=== PATIENT | male | born 1960 | race Caucasian/White ===

== ENCOUNTER 2019-07-13 08:00 | Outpatient (CLI) | payer MEDICARE, MEDICAID ==
[~2019-07-13] VITALS: Ht 165.1 cm; Wt 67.4 kg
[2019-07-13 06:16] VITALS: BP 108/62
[2019-07-13 06:49] LABS: BASOPHILS # (AUTO) 0.04 x10^3/uL (0-0.1); BASOPHILS % (AUTO) 1 % (0-1); EOSINOPHILS # (AUTO) 0.19 x10^3/uL (0-0.4); EOSINOPHILS % (AUTO) 2 % (1-7); LYMPHOCYTES % (AUTO) 25 % (22-44); MD NO; MEAN CORPUSCULAR HEMOGLOBIN 29.1 pg (27.5-34.5); MEAN CORPUSCULAR VOLUME 85.3 fL (81-97); MONOCYTES # (AUTO) 0.63 x10^3/uL (0.2-0.8); MONOCYTES % (AUTO) 7 % (2-9); NEUTROPHILS # (AUTO) 5.51 x10^3/uL (1.8-6.8); NEUTROPHILS % (AUTO) 65 % (42-75); PLATELET COUNT 362 x10^3/uL (130-400); RED BLOOD COUNT 4.09 x10^6/uL (4.38-5.82); RED CELL DISTRIBUTION WIDTH 13.6 % (9.4-14.8)
[2019-07-13 07:01] LABS: ALANINE AMINOTRANSFERASE 19 U/L (12-78); ALBUMIN 2.9 g/dL (3.4-5.0); ANION GAP 8 mmol/L (5-15); CALCIUM 9.3 mg/dL (8.5-10.1); CHLORIDE 91 mmol/L (98-107); CREATININE 0.92 mg/dL (0.7-1.3)
[2019-07-13 07:03] LABS: ALKALINE PHOSPHATASE 102 U/L (45-117); BILIRUBIN,TOTAL 0.3 mg/dL (0.2-1.0); TOTAL PROTEIN 6.8 g/dL (6.4-8.2)
[~2019-07-13 08:00] MED LIST: BUPIVACAINE/PF-EPI 0.5% 1:200K ONE; CHLORHEXIDINE 15 ML UDC MM STA; CLON0.1T22 PO; CLOP75TA52 PO; DILT180C76 PO; DULO30CA2 PO; FENO160T PO; FENTANYL PF 100 MCG/2ML ONE; FLUT9.9S NS; HEPARIN 1,000 UNITS/ML, 10ML ONE; HYDR-36 PO; INSU100I13 SC; LACTATED RINGERS 1,000 ML IV SCH; LISI1TAB20 PO; METF500T17 PO; MIDAZOLAM 1 MG/ML, 2ML ONE; MIRT30TA4 PO; MONT10TA6 PO; NPH,100V5 SC; OMEG-14 PO; OMEP-110 PO; POTASSIUM CHLORIDE 40 MEQ in SODIUM CHLORIDE 0.9% 500 ML IV STA; PREG200C PO; THROMBIN 20,000 UNIT VIAL TP ONE
[2019-07-16] MEDS ORDERED: HEPARIN 1,000 UNITS/ML, 10ML ONE (12:23)
[2019-07-16] MEDS ORDERED: BUPIVACAINE/PF-EPI 0.5% 1:200K ONE (12:23)
[2019-07-16] MEDS ORDERED: PAPAVERINE 30 MG/ML, 2ML ONE (12:23)
[2019-07-16] MEDS ORDERED: PROTAMINE SULFATE 10 MG/ML, 5ML ONE (12:24)
== END 2019-07-13 23:59 | disposition home or self-care (01) ==
LOC: OUT 08:00
PROVIDERS: ATTEND Surgery
DX: Z01.818 Encounter for other preprocedural examination (principal); R94.31 Abnormal electrocardiogram [ECG] [EKG]; I49.1 Atrial premature depolarization; J98.11 Atelectasis; J84.10 Pulmonary fibrosis, unspecified; I70.212 Atherosclerosis of native arteries of extremities with intermittent claudication, left leg
CPT/HCPCS: 36415; 71045; 80053; 82962; 85025; 86850; 86900; 93005; J1644; J2250; J3010; J7120; J2720; J2440

== ENCOUNTER 2019-07-16 12:21 | Emergency (ER) | payer MEDICARE, MEDICAID ==
[~2019-07-16] VITALS: Ht 165.1 cm; Wt 68.0 kg
[~2019-07-16 12:21] MED LIST changes: -BUPIVACAINE/PF-EPI 0.5% 1:200K ONE; -CHLORHEXIDINE 15 ML UDC MM STA; -FENTANYL PF 100 MCG/2ML ONE; -HEPARIN 1,000 UNITS/ML, 10ML ONE; +HYDR-3246 PO; -HYDR-36 PO; -LACTATED RINGERS 1,000 ML IV SCH; -MIDAZOLAM 1 MG/ML, 2ML ONE; -POTASSIUM CHLORIDE 40 MEQ in SODIUM CHLORIDE 0.9% 500 ML IV STA; -THROMBIN 20,000 UNIT VIAL TP ONE
[2019-07-16 13:00] LABS: ANION GAP 9 mmol/L (5-15); CALCIUM 10.6 mg/dL (8.5-10.1); CHLORIDE 97 mmol/L (98-107); CREATININE 0.89 mg/dL (0.7-1.3)
[2019-07-16 13:05] LABS: MEAN CORPUSCULAR HEMOGLOBIN 28.7 pg (27.5-34.5); MEAN CORPUSCULAR HGB CONC 33.8 g/dL (33.2-36.2); MEAN PLATELET VOLUME 8.8 fL (7.4-10.4); PLATELET COUNT 429 x10^3/uL (130-400); RED BLOOD COUNT 5.12 x10^6/uL (4.38-5.82); RED CELL DISTRIBUTION WIDTH 14.1 % (9.4-14.8)
--- NOTE | 2019-07-16 13:08 | NUR ---
[employer]: PT TO ROOM FROM LOBBY IN
[2019-07-16 13:27] LABS: BASOPHILS % (AUTO) 0 % (0-1); EOSINOPHILS # (AUTO) 0.02 x10^3/uL (0-0.4); EOSINOPHILS % (AUTO) 0 % (1-7); LYMPHOCYTES % (AUTO) 12 % (22-44); MD SCAN; MONOCYTES # (AUTO) 0.32 x10^3/uL (0.2-0.8); MONOCYTES % (AUTO) 4 % (2-9); NEUTROPHILS # (AUTO) 7.27 x10^3/uL (1.8-6.8); NEUTROPHILS % (AUTO) 84 % (42-75)
[2019-07-16] MEDS ORDERED: SODIUM CHLORIDE 0.9% 1,000ML IVBOLUS ONE (13:30)
[2019-07-16] MEDS ORDERED: SODIUM CHLORIDE FLUSH 10ML SYR IVF ONE (13:30)
--- NOTE | 2019-07-16 13:51 | NUR ---
PT CAME IN CO OF RIGHT TOE NECROSIS WAS GOING TO GET SURGERY TODAY WHICH IS NO LONGER GOING TO HAPPEN BECAUSE PATIENT IS ALSO CO OF FEVER, BODY ACHES, AND A COUGH. DROPLET PRECAUTIONS IN PLACE
[2019-07-16] MEDS ORDERED: OXYC10TA6 PO (15:21)
[2019-07-16 15:30] VITALS: BP 111/68
--- NOTE | 2019-07-16 15:38 | NUR ---
PT RESTING IN [facility]. VSS. NOTIFIED THAT PT REQUESTS PAIN MEDS
[2019-07-16 15:55] LABS: MICROSCOPIC INDICATED
[2019-07-16] MEDS ORDERED: INSULIN LISPRO 100 UNITS/ML, PEN SQ-INSULIN SCH ×2 (16:00→18:00)
[2019-07-16] MEDS ORDERED: PREGABALIN 200 MG CAPSULE PO SCH ×2 (16:00→18:00)
[2019-07-16] MEDS ORDERED: OXYcodone 5 MG/5 ML ORAL.SOL UDC PO PRN (16:00)
--- NOTE | 2019-07-16 16:27 | NUR ---
PT REMOVED PULSE OX AND BP CUFF FOR THE SECOND TIME
--- NOTE | 2019-07-16 17:27 | NUR ---
PT REMOVED IV HIMSELF AND STATED THAT HE WANTS TO GO HOME. PT HAS BEEN EDUCATED THAT IF HE LEAVES HE WILL LOSE HIS LEG. HE STILL WANTS TO LEAVE. MD TO TALK TO HIM TO MAKE SURE HE UNDERSTANDS THE GRAVITY OF THE SITUATION
--- NOTE | 2019-07-16 17:33 | NUR ---
AFTER TALKING WITH DR LAIRD. PT STILL WANTS TO LEAVE. PT UNDERSTANDS THERE IS A VERY GOOD CHANCE THAT HE WILL LOSE HIS LEG IF HE LEAVES AND THAT HE WILL UNLIKELY BE ABLE TO SCHUEDULE HIS SURGERY FOR 2 WEEKS
[2019-07-16] MEDS ORDERED: MIRTAZAPINE 30 MG TABLET PO SCH ×2 (21:00)
[2019-07-17] MEDS ORDERED: MONTELUKAST 10 MG TABLET PO SCH ×2 (09:00)
[2019-07-17] MEDS ORDERED: DULOXETINE 30 MG CAPSULE.DR PO SCH ×2 (09:00)
[2019-07-17] MEDS ORDERED: OMEPRAZOLE 20 MG CAPSULE.DR PO SCH ×2 (09:00)
[2019-07-17] MEDS ORDERED: CLOPIDOGREL 75 MG TABLET PO SCH ×2 (09:00)
[2019-07-17] MEDS ORDERED: TEMPLATE NON-FORMULARY MED. (Fluticasone Propionate (Flonase Allergy Relief) 1 SPRAY) NS SCH ×2 (09:00)
[2019-07-17] MEDS ORDERED: TEMPLATE NON-FORMULARY MED. (Fenofibrate** 160 MG) PO SCH ×2 (09:00)
[2019-07-17] MEDS ORDERED: DILTIAZEM HCL 180 MG PO SCH ×2 (09:00)
[2019-08-21] MEDS ORDERED: HYDR-3622 PO (15:05)
[2019-08-21] MEDS ORDERED: NPH,100V5 SQ ×2 (15:05)
== END 2019-07-16 17:47 | disposition left against medical advice (07) ==
LOC: ED 13:41 → EDIP 14:20 → UNDOADMIN 14:20 → ED 17:47
DX: B34.9 Viral infection, unspecified (principal); Z20.828 Contact with and (suspected) exposure to other viral communicable diseases; E11.9 Type 2 diabetes mellitus without complications; F17.200 Nicotine dependence, unspecified, uncomplicated; R00.0 Tachycardia, unspecified
CPT/HCPCS: 36415; 71045; 80048; 81001; 83605; 84145; 85025; 87040; 93005; 99285; J7030; 99283

== ENCOUNTER 2019-07-23 07:03 | Inpatient (IN) | payer MEDICARE, MEDICAID ==
[~2019-07-23] VITALS: Ht 165.1 cm; Wt 70.7 kg
[~2019-07-23 07:03] MED LIST changes: -HYDR-3246 PO; +HYDR-36 PO; +OXYC10TA6 PO
[2019-07-23] MEDS ORDERED: LACTATED RINGERS 1,000 ML IV SCH ×2 (07:24→17:30)
[2019-07-23] MEDS ORDERED: CHLORHEXIDINE 15 ML UDC MM ONE (07:30)
[2019-07-23 07:58] VITALS: BP 129/74
[2019-07-23] MEDS ORDERED: PLEASE ENTER ALLERGIES MC SCH (08:00)
[2019-07-23] MEDS ORDERED: INSULIN REGULAR 100 UNITS/ML, 3ML VIAL SQ-INSULIN STA (08:10)
[2019-07-23] MEDS ORDERED: INSULIN SINGLE DOSE, ER ONE ×2 (08:18→10:07)
[2019-07-23] MEDS ORDERED: ACETAMINOPHEN 500 MG TABLET ONE (08:21)
[2019-07-23] MEDS ORDERED: GABAPENTIN 300 MG CAPSULE ONE (08:21)
[2019-07-23] MEDS ORDERED: GABAPENTIN 300 MG CAPSULE PO ONE (08:30)
[2019-07-23] MEDS ORDERED: ACETAMINOPHEN 500 MG TABLET PO ONE (08:30)
[2019-07-23] MEDS ORDERED: HEPARIN 1,000 UNITS/ML, 10ML ONE ×2 (09:53→12:09)
[2019-07-23] MEDS ORDERED: BUPIVACAINE/PF-EPI 0.5% 1:200K ONE (09:53)
[2019-07-23] MEDS ORDERED: PROMETHAZINE 25 MG/ML, 1ML IV PRN (10:00)
[2019-07-23] MEDS ORDERED: hydrALAzine 20 MG/ML, 1ML IV PRN (10:00)
[2019-07-23] MEDS ORDERED: MEPERIDINE/PF 25MG/ML,1ML IVPush PRN (10:00)
[2019-07-23] MEDS ORDERED: LABETALOL 5MG/ML, 20ML IV PRN (10:00)
[2019-07-23] MEDS ORDERED: HALOPERIDOL 5 MG/ML IV PRN (10:00)
[2019-07-23] MEDS ORDERED: OXYcodone 5 MG/5 ML ORAL.SOL UDC PO PRN (10:00)
[2019-07-23] MEDS ORDERED: FENTANYL PF 250 MCG/5ML ONE (10:10)
[2019-07-23] MEDS ORDERED: PHENYLEPHRINE 10 MG/ML ONE (11:15)
[2019-07-23] MEDS ORDERED: PROTAMINE SULFATE 10 MG/ML, 5ML ONE (13:14)
[2019-07-23] MEDS ORDERED: SUCCINYLCHOLINE 20 MG/ML, 10ML ONE (13:42)
[2019-07-23] MEDS ORDERED: DEXAMETHASONE 4 MG/ML, 1ML ONE (13:42)
[2019-07-23] MEDS ORDERED: ONDANSETRON 2MG/ML, 2ML ONE (13:42)
[2019-07-23] MEDS ORDERED: ROCURONIUM 10MG/ML,5ML ONE (13:42)
[2019-07-23] MEDS ORDERED: NEOSTIGMINE 1 MG/ML, 10ML ONE (13:42)
[2019-07-23] MEDS ORDERED: CEFAZOLIN 1,000 MG ONE (13:42)
[2019-07-23] MEDS ORDERED: PROPOFOL 10 MG/ML, 20ML ONE (13:42)
[2019-07-23] MEDS ORDERED: GLYCOPYRROLATE 0.2MG/1ML, 5ML ONE (13:42)
[2019-07-23] MEDS ORDERED: ESMOLOL 100 MG/10 ML ONE (13:54)
[2019-07-23] MEDS ORDERED: EPHEDRINE 50 MG/ML, 1ML ONE (14:42)
[2019-07-23] MEDS ORDERED: LACTATED RINGERS 500 ML IVBOLUS ONE ×2 (15:00→15:30)
[2019-07-23] MEDS ORDERED: PHENYLEPHRINE 50 MG in SODIUM CHLORIDE 0.9% 245 ML IV PRN (15:00)
[2019-07-23] MEDS ORDERED: EPHEDRINE 50 MG/ML, 1ML IVPush ONE ×2 (15:00)
[2019-07-23] MEDS ORDERED: FENTANYL PF 100 MCG/2ML ONE (15:12)
[2019-07-23] MEDS: FENTANYL PF 100 MCG/2ML IV PRN ×3 (15:15→15:58)
[2019-07-23] MEDS ORDERED: OXYcodone 5 MG/5 ML ORAL.SOL UDC ONE (16:03)
[2019-07-23] MEDS ORDERED: HYDROmorphone 1 MG/ML, 1ML INJ ONE (16:03)
[2019-07-23] MEDS: HYDROmorphone 2 MG/ML, 1ML IVPush PRN ×2 (16:10→16:19)
[2019-07-23] MEDS ORDERED: PREGABALIN 100 MG CAPSULE ONE ×2 (17:41→17:55)
[2019-07-23] MEDS ORDERED: MIRTAZAPINE 30 MG TABLET ONE ×2 (17:41→17:55)
[2019-07-23] MEDS: PREGABALIN 200 MG CAPSULE PO SCH ×2 (18:00→18:31)
[2019-07-23] MEDS: MIRTAZAPINE 30 MG TABLET PO SCH (18:00)
[2019-07-23] MEDS: MONTELUKAST 10 MG TABLET PO SCH (19:49)
[2019-07-23] MEDS: INSULIN REGULAR, HUMAN 100 UNITS/ML, 3ML MEDIUM DOSE SS SQ-INSULIN SCH (19:49)
[2019-07-23 20:00] VITALS: BP 125/64
[2019-07-23] MEDS ORDERED: PREGABALIN 200 MG CAPSULE PO SCH (21:00)
[2019-07-23] MEDS ORDERED: MIRTAZAPINE 30 MG TABLET PO SCH (21:00)
[2019-07-23] MEDS: CEFAZOLIN PMX 1GM/50ML 50 ML IV SCH (21:46)
[2019-07-23] MEDS: LACTATED RINGERS 1,000 ML IV SCH (21:46)
[2019-07-23 23:47] VITALS: BP 133/72
[2019-07-24] MEDS: INSULIN REGULAR, HUMAN 100 UNITS/ML, 3ML MEDIUM DOSE SS SQ-INSULIN SCH ×4 (00:22→17:53)
[2019-07-24] MEDS: OXYcodone IR 5MG TABLET PO PRN ×4 (02:12→20:07)
[2019-07-24 04:23] VITALS: BP 150/69
[2019-07-24] MEDS: morphine SULFATE 10 MG/ML, 1ML IV PRN ×2 (05:37→08:57)
[2019-07-24] MEDS: PANTOPRAZOLE 40MG TABLET PO SCH (05:53)
[2019-07-24] MEDS: HEPARIN 5,000 UNITS/ML, 1ML SQ SCH ×3 (05:53→22:30)
[2019-07-24] MEDS: CEFAZOLIN PMX 1GM/50ML 50 ML IV SCH ×3 (05:53→22:30)
[2019-07-24] MEDS: LACTATED RINGERS 1,000 ML IV SCH ×2 (05:53→16:42)
[2019-07-24 07:36] VITALS: BP 141/64
[2019-07-24] MEDS: FENOFIBRATE 145 MG TABLET PO SCH (08:17)
[2019-07-24] MEDS: DULOXETINE 30 MG CAPSULE.DR PO SCH (08:17)
[2019-07-24] MEDS: CLOPIDOGREL 75 MG TABLET PO SCH (08:17)
[2019-07-24] MEDS: PREGABALIN 200 MG CAPSULE PO SCH ×3 (08:18→19:51)
[2019-07-24] MEDS: OMEGA-3/FISH OIL CAPSULE PO SCH (08:18)
[2019-07-24] MEDS: HYDROCHLOROTHIAZIDE 25 MG TABLET PO SCH (08:18)
[2019-07-24] MEDS: LISINOPRIL 20 MG TABLET PO SCH (08:18)
[2019-07-24] MEDS: DILTIAZEM CD 180 MG CAP.ER.24H PO SCH (08:18)
[2019-07-24] MEDS: FLUTICASONE NASAL SPRAY 16GM NAS SCH (08:54)
[2019-07-24 14:35] VITALS: BP 122/57
[2019-07-24] MEDS ORDERED: ONDANSETRON 2MG/ML, 2ML IVPush PRN (17:00)
[2019-07-24] MEDS: POTASSIUM CHLORIDE 20 MEQ TAB.ER.PRT PO SCH (17:52)
[2019-07-24] MEDS: MIRTAZAPINE 30 MG TABLET PO SCH (19:51)
[2019-07-24] MEDS: MONTELUKAST 10 MG TABLET PO SCH (19:51)
[2019-07-24 19:52] VITALS: BP 124/65
[2019-07-24] MEDS ORDERED: MORPHINE SULFATE 4 MG/ML, 1ML ONE (19:59)
[2019-07-24 21:10] LABS: MICROSCOPIC AUTO
[2019-07-24 21:13] LABS: CULTURE INDICATED? NO
[2019-07-25] MEDS: INSULIN REGULAR, HUMAN 100 UNITS/ML, 3ML MEDIUM DOSE SS SQ-INSULIN SCH ×6 (00:09→23:56)
[2019-07-25] MEDS: LACTATED RINGERS 1,000 ML IV SCH ×2 (03:10→13:47)
[2019-07-25 03:12] VITALS: BP 114/63
[2019-07-25 05:12] LABS: ANION GAP 7 mmol/L (5-15); CALCIUM 8.8 mg/dL (8.5-10.1); CHLORIDE 97 mmol/L (98-107)
[2019-07-25] MEDS: PANTOPRAZOLE 40MG TABLET PO SCH (05:35)
[2019-07-25] MEDS: HEPARIN 5,000 UNITS/ML, 1ML SQ SCH ×3 (05:36→21:57)
[2019-07-25] MEDS: CEFAZOLIN PMX 1GM/50ML 50 ML IV SCH ×3 (06:06→21:57)
[2019-07-25 06:47] VITALS: BP 120/77
[2019-07-25] MEDS: OXYcodone IR 5MG TABLET PO PRN ×2 (08:13→16:47)
[2019-07-25] MEDS: POTASSIUM CHLORIDE 20 MEQ TAB.ER.PRT PO SCH ×2 (08:13→16:47)
[2019-07-25] MEDS: PREGABALIN 200 MG CAPSULE PO SCH ×3 (08:13→20:31)
[2019-07-25] MEDS: HYDROCHLOROTHIAZIDE 25 MG TABLET PO SCH (08:13)
[2019-07-25] MEDS: FLUTICASONE NASAL SPRAY 16GM NAS SCH (08:13)
[2019-07-25] MEDS: LISINOPRIL 20 MG TABLET PO SCH (08:14)
[2019-07-25] MEDS: FENOFIBRATE 145 MG TABLET PO SCH ×2 (08:14→11:36)
[2019-07-25] MEDS: CLOPIDOGREL 75 MG TABLET PO SCH ×2 (08:14→11:37)
[2019-07-25] MEDS: OMEGA-3/FISH OIL CAPSULE PO SCH ×2 (08:14→11:36)
[2019-07-25] MEDS: DULOXETINE 30 MG CAPSULE.DR PO SCH ×2 (08:14→11:36)
[2019-07-25] MEDS: DILTIAZEM CD 180 MG CAP.ER.24H PO SCH (08:14)
[2019-07-25 12:40] VITALS: BP 94/45
[2019-07-25 12:49] VITALS: BP 101/65
[2019-07-25 20:04] VITALS: BP 106/50
[2019-07-25] MEDS: MONTELUKAST 10 MG TABLET PO SCH (20:31)
[2019-07-25] MEDS: MIRTAZAPINE 30 MG TABLET PO SCH (20:31)
[2019-07-26] MEDS: LACTATED RINGERS 1,000 ML IV SCH ×3 (01:23→21:30)
[2019-07-26 01:24] VITALS: BP 111/64
[2019-07-26] MEDS: PANTOPRAZOLE 40MG TABLET PO SCH (05:42)
[2019-07-26] MEDS: HEPARIN 5,000 UNITS/ML, 1ML SQ SCH ×3 (05:45→22:00)
[2019-07-26] MEDS: CEFAZOLIN PMX 1GM/50ML 50 ML IV SCH ×2 (05:46→14:12)
[2019-07-26 05:53] LABS: ANION GAP 6 mmol/L (5-15); CALCIUM 9.8 mg/dL (8.5-10.1); CHLORIDE 98 mmol/L (98-107)
[2019-07-26] MEDS: INSULIN REGULAR, HUMAN 100 UNITS/ML, 3ML MEDIUM DOSE SS SQ-INSULIN SCH ×3 (05:53→17:58)
[2019-07-26 05:56] LABS: CREATININE 0.62 mg/dL (0.7-1.3)
[2019-07-26 07:15] VITALS: BP 152/72
[2019-07-26] MEDS: PREGABALIN 200 MG CAPSULE PO SCH ×3 (08:15→22:05)
[2019-07-26] MEDS: POTASSIUM CHLORIDE 20 MEQ TAB.ER.PRT PO SCH ×2 (08:15→17:06)
[2019-07-26] MEDS: OMEGA-3/FISH OIL CAPSULE PO SCH (08:16)
[2019-07-26] MEDS: DULOXETINE 30 MG CAPSULE.DR PO SCH (08:16)
[2019-07-26] MEDS: CLOPIDOGREL 75 MG TABLET PO SCH (08:16)
[2019-07-26] MEDS: LISINOPRIL 20 MG TABLET PO SCH (08:16)
[2019-07-26] MEDS: HYDROCHLOROTHIAZIDE 25 MG TABLET PO SCH (08:16)
[2019-07-26] MEDS: FENOFIBRATE 145 MG TABLET PO SCH (08:16)
[2019-07-26] MEDS: DILTIAZEM CD 180 MG CAP.ER.24H PO SCH (08:16)
[2019-07-26] MEDS: FLUTICASONE NASAL SPRAY 16GM NAS SCH (08:17)
[2019-07-26] MEDS: OXYcodone IR 5MG TABLET PO PRN ×2 (08:24→22:12)
[2019-07-26 13:05] VITALS: BP 115/69
[2019-07-26] MEDS ORDERED: CHLORHEXIDINE 15 ML UDC MM ONE (15:30)
[2019-07-26] MEDS ORDERED: FENTANYL PF 100 MCG/2ML ONE ×2 (16:01→18:19)
[2019-07-26] MEDS ORDERED: BUPIVACAINE/PF 0.5% ONE (16:59)
[2019-07-26] MEDS ORDERED: HYDROmorphone 2 MG/ML, 1ML IVPush PRN (17:00)
[2019-07-26] MEDS ORDERED: LABETALOL 5MG/ML, 20ML IV PRN (17:00)
[2019-07-26] MEDS ORDERED: MEPERIDINE/PF 25MG/ML,1ML IVPush PRN (17:00)
[2019-07-26] MEDS ORDERED: OXYcodone 5 MG/5 ML ORAL.SOL UDC PO PRN (17:00)
[2019-07-26] MEDS ORDERED: hydrALAzine 20 MG/ML, 1ML IV PRN (17:00)
[2019-07-26] MEDS ORDERED: FENTANYL PF 100 MCG/2ML IV PRN (17:00)
[2019-07-26] MEDS ORDERED: HALOPERIDOL 5 MG/ML IV PRN (17:00)
[2019-07-26] MEDS ORDERED: PROMETHAZINE 25 MG/ML, 1ML IV PRN (17:00)
[2019-07-26] MEDS ORDERED: OXYcodone 5 MG/5 ML ORAL.SOL UDC ONE (18:24)
[2019-07-26 18:45] VITALS: BP 146/77
[2019-07-26] MEDS: MIRTAZAPINE 30 MG TABLET PO SCH (22:05)
[2019-07-26] MEDS: MONTELUKAST 10 MG TABLET PO SCH (22:05)
[2019-07-27] MEDS: INSULIN REGULAR, HUMAN 100 UNITS/ML, 3ML MEDIUM DOSE SS SQ-INSULIN SCH ×4 (00:21→16:57)
[2019-07-27 00:47] VITALS: BP 150/77
[2019-07-27 04:08] VITALS: BP 127/67
[2019-07-27 05:33] LABS: ANION GAP 6 mmol/L (5-15); CALCIUM 9.5 mg/dL (8.5-10.1); CHLORIDE 96 mmol/L (98-107)
[2019-07-27 05:36] LABS: CREATININE 0.72 mg/dL (0.7-1.3)
[2019-07-27] MEDS: HEPARIN 5,000 UNITS/ML, 1ML SQ SCH ×3 (06:00→22:25)
[2019-07-27] MEDS: OXYcodone IR 5MG TABLET PO PRN ×3 (06:22→20:47)
[2019-07-27] MEDS: PANTOPRAZOLE 40MG TABLET PO SCH (06:22)
[2019-07-27 07:57] VITALS: BP 132/75
[2019-07-27] MEDS: FENOFIBRATE 145 MG TABLET PO SCH (08:11)
[2019-07-27] MEDS: CLOPIDOGREL 75 MG TABLET PO SCH (08:11)
[2019-07-27] MEDS: PREGABALIN 200 MG CAPSULE PO SCH ×3 (08:11→20:48)
[2019-07-27] MEDS: LISINOPRIL 20 MG TABLET PO SCH (08:11)
[2019-07-27] MEDS: DILTIAZEM CD 180 MG CAP.ER.24H PO SCH (08:12)
[2019-07-27] MEDS: FLUTICASONE NASAL SPRAY 16GM NAS SCH (08:12)
[2019-07-27] MEDS: HYDROCHLOROTHIAZIDE 25 MG TABLET PO SCH (08:12)
[2019-07-27] MEDS: POTASSIUM CHLORIDE 20 MEQ TAB.ER.PRT PO SCH ×2 (08:12→16:55)
[2019-07-27] MEDS: DULOXETINE 30 MG CAPSULE.DR PO SCH (08:12)
[2019-07-27] MEDS: OMEGA-3/FISH OIL CAPSULE PO SCH (08:12)
[2019-07-27 14:03] VITALS: BP 134/73
[2019-07-27] MEDS: LACTATED RINGERS 1,000 ML IV SCH ×2 (14:28→17:30)
[2019-07-27 19:08] VITALS: BP 149/74
[2019-07-27] MEDS: MIRTAZAPINE 30 MG TABLET PO SCH (20:47)
[2019-07-27] MEDS: MONTELUKAST 10 MG TABLET PO SCH (20:48)
[2019-07-28] MEDS: INSULIN REGULAR, HUMAN 100 UNITS/ML, 3ML MEDIUM DOSE SS SQ-INSULIN SCH ×4 (00:03→17:21)
[2019-07-28 01:34] VITALS: BP 115/70
[2019-07-28] MEDS: LACTATED RINGERS 1,000 ML IV SCH ×3 (02:08→23:30)
[2019-07-28] MEDS: HEPARIN 5,000 UNITS/ML, 1ML SQ SCH ×3 (06:05→21:20)
[2019-07-28] MEDS: PANTOPRAZOLE 40MG TABLET PO SCH (06:05)
[2019-07-28 06:48] VITALS: BP 140/73
[2019-07-28 07:00] LABS: ANION GAP 8 mmol/L (5-15); CALCIUM 9.8 mg/dL (8.5-10.1); CHLORIDE 96 mmol/L (98-107); CREATININE 0.66 mg/dL (0.7-1.3)
[2019-07-28] MEDS: FENOFIBRATE 145 MG TABLET PO SCH (08:28)
[2019-07-28] MEDS: PREGABALIN 200 MG CAPSULE PO SCH ×3 (08:28→21:20)
[2019-07-28] MEDS: POTASSIUM CHLORIDE 20 MEQ TAB.ER.PRT PO SCH ×2 (08:28→16:14)
[2019-07-28] MEDS: DULOXETINE 30 MG CAPSULE.DR PO SCH (08:28)
[2019-07-28] MEDS: CLOPIDOGREL 75 MG TABLET PO SCH (08:28)
[2019-07-28] MEDS: LISINOPRIL 20 MG TABLET PO SCH (08:28)
[2019-07-28] MEDS: DILTIAZEM CD 180 MG CAP.ER.24H PO SCH (08:29)
[2019-07-28] MEDS: HYDROCHLOROTHIAZIDE 25 MG TABLET PO SCH (08:29)
[2019-07-28] MEDS: OMEGA-3/FISH OIL CAPSULE PO SCH (08:29)
[2019-07-28] MEDS: FLUTICASONE NASAL SPRAY 16GM NAS SCH (08:29)
[2019-07-28 12:21] VITALS: BP 144/75
[2019-07-28] MEDS: OXYcodone IR 5MG TABLET PO PRN (16:14)
[2019-07-28 19:48] VITALS: BP 122/73
[2019-07-28] MEDS: MIRTAZAPINE 30 MG TABLET PO SCH (21:20)
[2019-07-28] MEDS: MONTELUKAST 10 MG TABLET PO SCH (21:20)
[2019-07-29 02:33] VITALS: BP 125/73
[2019-07-29 05:31] LABS: ANION GAP 6 mmol/L (5-15); CALCIUM 10.1 mg/dL (8.5-10.1); CHLORIDE 98 mmol/L (98-107); CREATININE 0.86 mg/dL (0.7-1.3)
[2019-07-29] MEDS: INSULIN REGULAR, HUMAN 100 UNITS/ML, 3ML MEDIUM DOSE SS SQ-INSULIN SCH ×4 (06:00→18:31)
[2019-07-29] MEDS: PANTOPRAZOLE 40MG TABLET PO SCH (06:20)
[2019-07-29] MEDS: HEPARIN 5,000 UNITS/ML, 1ML SQ SCH ×3 (06:21→21:18)
[2019-07-29 07:10] VITALS: BP 133/79
[2019-07-29] MEDS: PREGABALIN 200 MG CAPSULE PO SCH ×3 (07:43→21:17)
[2019-07-29] MEDS: FENOFIBRATE 145 MG TABLET PO SCH (07:43)
[2019-07-29] MEDS: DILTIAZEM CD 180 MG CAP.ER.24H PO SCH (07:43)
[2019-07-29] MEDS: POTASSIUM CHLORIDE 20 MEQ TAB.ER.PRT PO SCH ×2 (07:43→14:55)
[2019-07-29] MEDS: HYDROCHLOROTHIAZIDE 25 MG TABLET PO SCH (07:43)
[2019-07-29] MEDS: OMEGA-3/FISH OIL CAPSULE PO SCH (07:43)
[2019-07-29] MEDS: CLOPIDOGREL 75 MG TABLET PO SCH (07:43)
[2019-07-29] MEDS: LISINOPRIL 20 MG TABLET PO SCH (07:44)
[2019-07-29] MEDS: DULOXETINE 30 MG CAPSULE.DR PO SCH (07:44)
[2019-07-29] MEDS: FLUTICASONE NASAL SPRAY 16GM NAS SCH (07:44)
[2019-07-29] MEDS: LACTATED RINGERS 1,000 ML IV SCH ×2 (09:30→19:30)
[2019-07-29 13:37] VITALS: BP 132/82
[2019-07-29 18:36] VITALS: BP 118/52
[2019-07-29] MEDS: MIRTAZAPINE 30 MG TABLET PO SCH (21:17)
[2019-07-29] MEDS: MONTELUKAST 10 MG TABLET PO SCH (21:17)
[2019-07-30] MEDS: INSULIN REGULAR, HUMAN 100 UNITS/ML, 3ML MEDIUM DOSE SS SQ-INSULIN SCH ×4 (00:15→20:51)
[2019-07-30 00:32] VITALS: BP 152/78
[2019-07-30] MEDS: LACTATED RINGERS 1,000 ML IV SCH ×2 (05:30→07:33)
[2019-07-30] MEDS: PANTOPRAZOLE 40MG TABLET PO SCH (06:43)
[2019-07-30] MEDS: HEPARIN 5,000 UNITS/ML, 1ML SQ SCH ×3 (06:43→23:18)
[2019-07-30 07:09] VITALS: BP 130/84
[2019-07-30] MEDS: POTASSIUM CHLORIDE 20 MEQ TAB.ER.PRT PO SCH ×2 (08:01→15:57)
[2019-07-30] MEDS: FLUTICASONE NASAL SPRAY 16GM NAS SCH (08:01)
[2019-07-30] MEDS: LISINOPRIL 20 MG TABLET PO SCH (08:01)
[2019-07-30] MEDS: FENOFIBRATE 145 MG TABLET PO SCH (08:01)
[2019-07-30] MEDS: OMEGA-3/FISH OIL CAPSULE PO SCH (08:01)
[2019-07-30] MEDS: CLOPIDOGREL 75 MG TABLET PO SCH (08:02)
[2019-07-30] MEDS: DILTIAZEM CD 180 MG CAP.ER.24H PO SCH (08:02)
[2019-07-30] MEDS: DULOXETINE 30 MG CAPSULE.DR PO SCH (08:02)
[2019-07-30] MEDS: PREGABALIN 200 MG CAPSULE PO SCH ×3 (08:02→20:50)
[2019-07-30] MEDS: HYDROCHLOROTHIAZIDE 25 MG TABLET PO SCH (08:03)
[2019-07-30] MEDS: OXYcodone IR 5MG TABLET PO PRN (10:36)
[2019-07-30 12:47] VITALS: BP 98/76
[2019-07-30 19:20] VITALS: BP 95/57
[2019-07-30] MEDS: MIRTAZAPINE 30 MG TABLET PO SCH (20:50)
[2019-07-30] MEDS: MONTELUKAST 10 MG TABLET PO SCH (20:50)
[2019-07-31 01:02] VITALS: BP 139/61
[2019-07-31] MEDS: LACTATED RINGERS 1,000 ML IV SCH ×3 (01:24→20:58)
[2019-07-31] MEDS: INSULIN REGULAR, HUMAN 100 UNITS/ML, 3ML MEDIUM DOSE SS SQ-INSULIN SCH ×4 (03:12→20:58)
[2019-07-31] MEDS: PANTOPRAZOLE 40MG TABLET PO SCH (06:42)
[2019-07-31] MEDS: HEPARIN 5,000 UNITS/ML, 1ML SQ SCH ×3 (06:42→21:15)
[2019-07-31 07:24] VITALS: BP 132/82
[2019-07-31] MEDS: FLUTICASONE NASAL SPRAY 16GM NAS SCH (08:45)
[2019-07-31] MEDS: POTASSIUM CHLORIDE 20 MEQ TAB.ER.PRT PO SCH ×2 (08:45→16:22)
[2019-07-31] MEDS: DULOXETINE 30 MG CAPSULE.DR PO SCH (08:45)
[2019-07-31] MEDS: FENOFIBRATE 145 MG TABLET PO SCH (08:45)
[2019-07-31] MEDS: PREGABALIN 200 MG CAPSULE PO SCH ×3 (08:45→20:57)
[2019-07-31] MEDS: DILTIAZEM CD 180 MG CAP.ER.24H PO SCH (08:46)
[2019-07-31] MEDS: OMEGA-3/FISH OIL CAPSULE PO SCH (08:46)
[2019-07-31] MEDS: HYDROCHLOROTHIAZIDE 25 MG TABLET PO SCH (08:46)
[2019-07-31] MEDS: CLOPIDOGREL 75 MG TABLET PO SCH (08:47)
[2019-07-31] MEDS: LISINOPRIL 20 MG TABLET PO SCH (08:47)
[2019-07-31] MEDS: OXYcodone IR 5MG TABLET PO PRN ×2 (12:16→21:13)
[2019-07-31 14:01] VITALS: BP 90/56
[2019-07-31 19:29] VITALS: BP 116/70
[2019-07-31] MEDS: MIRTAZAPINE 30 MG TABLET PO SCH (20:56)
[2019-07-31] MEDS: MONTELUKAST 10 MG TABLET PO SCH (20:57)
[2019-08-01] MEDS: INSULIN REGULAR, HUMAN 100 UNITS/ML, 3ML MEDIUM DOSE SS SQ-INSULIN SCH ×3 (03:02→14:30)
[2019-08-01 03:08] VITALS: BP 102/64
[2019-08-01] MEDS: OXYcodone IR 5MG TABLET PO PRN ×3 (05:53→18:27)
[2019-08-01] MEDS: HEPARIN 5,000 UNITS/ML, 1ML SQ SCH ×2 (05:53→14:13)
[2019-08-01] MEDS: PANTOPRAZOLE 40MG TABLET PO SCH (05:53)
[2019-08-01 07:08] VITALS: BP 87/43
[2019-08-01] MEDS: LACTATED RINGERS 1,000 ML IV SCH ×2 (07:30→17:30)
[2019-08-01] MEDS: PREGABALIN 200 MG CAPSULE PO SCH ×2 (08:47→16:48)
[2019-08-01] MEDS: DULOXETINE 30 MG CAPSULE.DR PO SCH (08:47)
[2019-08-01] MEDS: POTASSIUM CHLORIDE 20 MEQ TAB.ER.PRT PO SCH ×2 (08:47→16:48)
[2019-08-01] MEDS: CLOPIDOGREL 75 MG TABLET PO SCH (08:47)
[2019-08-01] MEDS: OMEGA-3/FISH OIL CAPSULE PO SCH (08:48)
[2019-08-01] MEDS: FENOFIBRATE 145 MG TABLET PO SCH (08:48)
[2019-08-01] MEDS: FLUTICASONE NASAL SPRAY 16GM NAS SCH (08:53)
[2019-08-01 09:00] VITALS: BP 107/66
[2019-08-01] MEDS: LISINOPRIL 20 MG TABLET PO SCH (09:11)
[2019-08-01] MEDS: DILTIAZEM CD 180 MG CAP.ER.24H PO SCH (09:12)
[2019-08-01] MEDS: HYDROCHLOROTHIAZIDE 25 MG TABLET PO SCH (09:12)
[2019-08-01 14:00] VITALS: BP 91/59
[2019-08-01] MEDS ORDERED: OXYC10TA6 PO (17:51)
== END 2019-08-01 19:04 | disposition home health service (06) | DRG 253 ==
LOC: ORIP 07:03 → 4NE 17:03
PROVIDERS: ADMIT Surgery; ATTEND Surgery
PROC: 04CK0ZZ Extirpation of Matter from Right Femoral Artery, Open Approach (ICD-10-PCS; 2019-07-23)
PROC: 03HY32Z Insertion of Monitoring Device into Upper Artery, Percutaneous Approach (ICD-10-PCS; 2019-07-23)
PROC: 041K0JL Bypass Right Femoral Artery to Popliteal Artery with Synthetic Substitute, Open Approach (ICD-10-PCS; principal; 2019-07-23 10:15)
PROC: 0Y6P0Z3 Detachment at Right 1st Toe, Low, Open Approach (ICD-10-PCS; 2019-07-26)
PROC: 0Y6T0Z3 Detachment at Right 3rd Toe, Low, Open Approach (ICD-10-PCS; 2019-07-26)
PROC: 0HBMXZZ Excision of Right Foot Skin, External Approach (ICD-10-PCS; 2019-07-26)
DX: E11.52 Type 2 diabetes mellitus with diabetic peripheral angiopathy with gangrene (principal); I70.261 Atherosclerosis of native arteries of extremities with gangrene, right leg; I25.10 Atherosclerotic heart disease of native coronary artery without angina pectoris; I10 Essential (primary) hypertension; K21.9 Gastro-esophageal reflux disease without esophagitis; E78.5 Hyperlipidemia, unspecified; F32.9 Major depressive disorder, single episode, unspecified; F41.9 Anxiety disorder, unspecified; J44.9 Chronic obstructive pulmonary disease, unspecified; Z86.718 Personal history of other venous thrombosis and embolism; I70.213 Atherosclerosis of native arteries of extremities with intermittent claudication, bilateral legs; I65.23 Occlusion and stenosis of bilateral carotid arteries
CPT/HCPCS: 36415; 80048; 81001; 82330; 82803; 82947; 82962; 84132; 84295; 85014; 85347; 87070; 87075; 87077; 87102; 87176; 87186; 87205; 88300; G0378; J0690; J1100; J1170; J1644; J1815; J2405; J2704; J2710; J2720; J3010; J7120; C1768; J0330; J2270; J2370

== ENCOUNTER → 2019-08-10 | Outpatient (CLI) | payer MEDICARE, MEDICAID | END | disposition home or self-care (01) | LOC: WOUND 08:45 | PROVIDERS: ATTEND Family Medicine | DX: E11.621 Type 2 diabetes mellitus with foot ulcer (principal); L97.512 Non-pressure chronic ulcer of other part of right foot with fat layer exposed; L97.521 Non-pressure chronic ulcer of other part of left foot limited to breakdown of skin; E11.51 Type 2 diabetes mellitus with diabetic peripheral angiopathy without gangrene; E11.21 Type 2 diabetes mellitus with diabetic nephropathy; E78.5 Hyperlipidemia, unspecified; I25.83 Coronary atherosclerosis due to lipid rich plaque; I21.A9 Other myocardial infarction type; I25.10 Atherosclerotic heart disease of native coronary artery without angina pectoris; I10 Essential (primary) hypertension; J44.9 Chronic obstructive pulmonary disease, unspecified; K21.9 Gastro-esophageal reflux disease without esophagitis; F41.9 Anxiety disorder, unspecified; F32.9 Major depressive disorder, single episode, unspecified; Z86.718 Personal history of other venous thrombosis and embolism; F17.200 Nicotine dependence, unspecified, uncomplicated | CPT/HCPCS: 11042; 97597; 99215 ==

== ENCOUNTER 2019-09-10 12:57 | Emergency (ER) | payer MEDICARE, MEDICAID ==
[~2019-09-10] VITALS: Ht 165.1 cm; Wt 71.0 kg
[~2019-09-10 12:57] MED LIST changes: +AMPI3VIA IV; +HYDR-3237 PO; +HYDR-3246 PO; -HYDR-36 PO; +HYDR-3622 PO; +NPH,100V5 SQ
[2019-09-10 13:05] VITALS: BP 201/89
--- NOTE | 2019-09-10 13:56 | NUR ---
BREAK RN: PT RESTING, AWAITING PICC PLACEMENT, CONSENT IN ROOM
--- NOTE | 2019-09-10 14:28 | NUR ---
PT IN IR NOW FOR PICC PLACEMENT.
--- NOTE | 2019-09-10 15:50 | NUR ---
REPORT FROM SATHYA MCMAHON.
== END 2019-09-10 16:09 | disposition home or self-care (01) ==
LOC: ED 13:51
DX: T82.52 Displacement of other cardiac and vascular devices and implants (principal); E11.9 Type 2 diabetes mellitus without complications; Z87.891 Personal history of nicotine dependence
CPT/HCPCS: 36573; 99285; C1751